=== PATIENT | male | born 1945 | race Caucasian/White ===

== ENCOUNTER 2016-05-05 02:58 | Emergency (ER) | payer MEDICARE ==
[2016-05-05 03:06] VITALS: BP 125/68
--- NOTE | 2016-05-05 08:47 | ER Document Report ---
ED Hip Pain/Injury - General Chief Complaint: Hip Pain Stated Complaint: RIGHT HIP PAIN Time seen by provider: 08:42 Mode of Arrival: Wheelchair Information source: Patient Notes: 71-year-old male presents to ED for right hip pain states he cannot walk. He states he was in [place] yesterday called Dr. Tellez's office and told him that this time while eases and his nephew he was to get his hip replaced as he has been told in the past that he needs to do this. He states he called the doctor's office and they told him that he would need to come in to see Dr. Tellez at the office. When he told them he cannot walk he states that the medical receptionist biller told him to come in the emergency room so Dr. Tellez could see him there. TRAVEL OUTSIDE OF THE [place] IN LAST 30 DAYS: No - HPI Patient complains to provider of: Pain, Hip Occurred: Other - Chronic states she's been seen in [place] and they told him that his hip was just about gone was go followed in the socket and that he needed a hip replacement Onset/Duration: Gradual, Persistent Quality of pain: Sharp - With any movement Severity: Severe Pain Level: 5 Context: Other - Chronic Symptoms prior to fall: None Symptoms since fall: None Skin Color: Normal Skin Temperature: Warm Rotation of extremity: None Pain with palpation of the pelvis: Yes - Related Data Allergies/Adverse Reactions: Penicillins Allergy (Mild, Verified 12/29/14 06:19) Past Medical History - General Information source: Patient - Social History Smoking Status: Former Smoker Chew tobacco use (# tins/day): No Frequency of alcohol use: None Drug Abuse: None Lives with: Other - Stated with the nephew in [place] when he is in [place] in a prison Family History: Reviewed & Not Pertinent Patient has suicidal ideation: No Patient has homicidal ideation: No - Past Medical History Cardiac Medical History: Reports: Hx DVT, Hx Hypertension, Hx Pulmonary Embolism - States had very small pulmonary emboli Pulmonary Medical History: Reports: None EENT Medical History: Reports: None Neurological Medical History: Reports: None Endocrine Medical History: Reports: None Renal/ Medical History: Reports: None Malignancy Medical History: Reports None GI Medical History: Reports: Hx Ulcer. Denies: Hx Colonoscopy, Hx Endoscopy Musculoskeltal Medical History: Reports Hx Arthritis, Reports Hx Musculoskeletal Deformity - Degenerated right hip degenerative back disease, Reports Hx Musculoskeletal Trauma, Reports Other - States she's been told he needed a hip replacement for the right Skin Medical History: Reports Other - Large necrotic area to the left leg that has been repaired by Dr. Kim Psychiatric Medical History: Reports: None Traumatic Medical History: Reports: Hx Fractures - Left arm Infectious Medical History: Reports: None Past Surgical History: Reports: Hx Orthopedic Surgery - left arm left leg large necrotic area repaired by Dr. Kim - Immunizations Hx Diphtheria, Pertussis, Tetanus Vaccination: No Review of Systems - Review of Systems Constitutional: No symptoms reported EENT: No symptoms reported Cardiovascular: No symptoms reported Respiratory: No symptoms reported Gastrointestinal: No symptoms reported Genitourinary: No symptoms reported Male Genitourinary: No symptoms reported Musculoskeletal: Joint pain - Right hip. denies: Joint swelling, Muscle pain, Muscle stiffness Skin: No symptoms reported Hematologic/Lymphatic: No symptoms reported Neurological/Psychological: No symptoms reported -: Yes All other systems reviewed and negative Physical Exam - Vital signs Vitals: Temp Pulse Resp BP Pulse Ox 97.5 F 115 H 22 H 125/68 94 05/05/16 03:02 05/05/16 03:02 05/05/16 03:02 05/05/16 03:02 05/05/16 03:02 Interpretation: Normal - General General appearance: Appears well, Alert - HEENT Head: Normocephalic, Atraumatic Eyes: Normal Pupils: PERRL - Respiratory Respiratory status: No respiratory distress Chest status: Nontender Breath sounds: Normal Chest palpation: Normal - Cardiovascular Rhythm: Regular Heart sounds: Normal auscultation Murmur: No - Abdominal Inspection: Normal Distension: No distension Bowel sounds: Normal Tenderness: Nontender Organomegaly: No organomegaly - Back Back: Normal, Nontender - Extremities General upper extremity: Normal inspection, Nontender, Normal color, Normal ROM , Normal temperature General lower extremity: Normal color, Normal temperature. No: Jacquelin's sign Hip: Tender - Right hip, Pain with ROM, Unable to bear weight. No: Abrasion, Deformity, Dislocation, Ecchymosis, Instability, Laceration Thigh: Tender, Unable to bear weight - Neurological Neuro grossly intact: Yes Cognition: Normal Orientation: AAOx4 Adonis Coma Scale Eye Opening: Spontaneous [place] Coma Scale Verbal: Oriented [place] Coma Scale Motor: Obeys Commands Adonis Coma Scale Total: 15 Speech: Normal Motor strength normal: LUE, RUE, LLE, RLE Sensory: Normal - Psychological Associated symptoms: Normal affect, Normal mood - Skin Skin Temperature: Warm Skin Moisture: Dry Skin Color: Normal Course - Re-evaluation Re-evalutation: 05/05/16 08:48 Discussed x-ray with patient and with Dr. Carney. Consulted Dr. Small as to whether I should get a CT or MRI of the hip and shoulder contact Dr. Tellez who the patient states is fix this hip. Dr. Carney stated that this is a chronic problem that the patient needs to go to Dr. Tellez's office for consult in any testing that he would like he will have done there. He stated this is not an acute problem and this is something that needs to be followed up at the orthopedics office. Discussed this plan with the patient and told him that he will need to get a ride to Dr. Tellez's office in follow-up there. - Vital Signs Vital signs: Temp Pulse Resp BP Pulse Ox 97.5 F 115 H 22 H 125/68 94 05/05/16 03:02 05/05/16 03:02 05/05/16 03:02 05/05/16 03:02 05/05/16 03:02 - Diagnostic Test Radiology reviewed: Image reviewed, Reports reviewed Discharge - Discharge Clinical Impression: Chronic right hip pain Condition: Stable Disposition: HOME, SELF-CARE Additional Instructions: He came to the emergency room today to have a right hip pain that is chronic evaluated in the emergency room. This is a chronic problem and needs to be evaluated at the orthopedics office. Please take a copy of your x-ray report with you to your appointment to [facility] for surgery Take your pain medicine as previously prescribed. In please called [facility] for surgery FOLLOW-UP CARE: If you have been referred to a physician for follow-up care, call the physician s office for an appointment as you were instructed or within the next two days. If you experience worsening or a significant change in your symptoms, notify the physician immediately or return to the Emergency Department at any time for re-evaluation. [facility] [place] [address] Hours: 8 am-5 pm, Tue-, 8 am - 12 pm, Tuesday Toll Free: [phone] [facility] Driving Directions
== END 2016-05-05 09:21 | disposition home or self-care (01) ==
LOC: ER 02:58
DX: G89.29 Other chronic pain (principal); M25.551 Pain in right hip; Z87.891 Personal history of nicotine dependence; Z86.718 Personal history of other venous thrombosis and embolism; I10 Essential (primary) hypertension; Z86.711 Personal history of pulmonary embolism; Z88.0 Allergy status to penicillin
CPT/HCPCS: 99283